=== PATIENT | female | born 1955 | race Caucasian/White ===

== ENCOUNTER 2018-02-08 06:22 | Day surgery (SDC) | payer OTHER ==
[2018-02-02 13:57] VITALS: BMI 24.0
[2018-02-08] MEDS ORDERED: LIDOCAINE HCL 1%, 10 MG/ML (20ML VIAL) ONE (07:29)
[2018-02-08] MEDS ORDERED: BUPIVACAINE HCL/PF 0.5% (5MG/ML) 10 ML VIAL ONE (07:29)
--- NOTE | 2018-02-08 07:47 | HP ---
History & Physical Update - History History: No Change - Physical Physical: No Change - Assessment Assessment: No Change - Plan Plan: No Change
[2018-02-08] MEDS ORDERED: PROPOFOL 20 ML ONE (07:48)
[2018-02-08] MEDS ORDERED: MIDAZOLAM HCL 2 MG/2 ML SINGLE DOSE VIAL ONE ×2 (07:51→07:54)
[2018-02-08] MEDS ORDERED: LIDOCAINE HCL 1%, 10 MG/ML (50 mL VIAL) IJ ONE ×2 (08:03)
[2018-02-08] MEDS ORDERED: BUPIVACAINE HCL/PF (5 MG/ML) 30 ML VIAL IJ ONE ×2 (08:03)
--- NOTE | 2018-02-08 08:37 | OP ---
Operative Note - Note: Operative Date: 02/08/18 Pre-Operative Diagnosis: Left flank Soft tissue mass Operation: Excision of Left flank soft tissue mass Findings: as dictated Implants: none Post-Operative Diagnosis: Same as Pre-op Surgeon: Romero Lewis Tool Lapper Hand: Kathleen Justin Anesthesiologist/ROLLED HAM LACER: Guadalupe Steele MD Anesthesia: Local (10cc .5%marcaine with 1% Lidocaine mix administered at time of incision), MAC Estimated Blood Loss (mls): 5 (ml) Drains & Tubes with Location: none Fluid Volume Replaced (mls): 400 (ml) Operative Report Dictated: Yes
--- NOTE | 2018-02-08 08:38 | SURG ---
Surgery At Risk Specialist Note At Risk Specialist: Kathleen Justin PA-C (Suzy) Date of Service: 02/08/18 Diagnosis: Left flank Soft tissue mass Procedure: Excision of Left flank soft tissue mass I was present for the entirety of the operative procedure. For further detail, please refer to operative report. Visit type - Case Type Case Type: Scheduled - Emergency Emergency Visit: No - New patient This patient is new to me today: Yes Date on this admission: 02/08/18 - Critical Care Critical Care patient: No
[2018-02-08] MEDS ORDERED: oxyCODONE HCL 5 MG TABLET PO PRN (09:24)
[2018-02-08] MEDS ORDERED: ONDANSETRON 4 MG/2 ML VIAL IVPUSH PRN (09:24)
[2018-02-08] MEDS ORDERED: PROMETHAZINE HCL 25 MG/1 ML VIAL IVPUSH PRN (09:24)
[2018-02-08] MEDS ORDERED: LACTATED RINGERS SOLUTION 1,000 ML IV SCH (09:30)
[2018-02-08 10:55] VITALS: BP 112/70
[2018-02-08 12:16] VITALS: PULSE 82; TEMP 97.8
--- NOTE | 2018-02-08 13:17 | OP ---
DATE OF OPERATION: 02/08/2018 PREOPERATIVE DIAGNOSIS: Lipoma of left flank. POSTOPERATIVE DIAGNOSIS: Lipoma of left flank. PROCEDURE: Excision, lipoma of left flank. SURGEON: Romero Lewis MD BIAS MACHINE OPERATOR: Alesha Justin PA-C ANESTHESIA: Local with IV sedation. OPERATIVE FINDINGS: There was an approximately 5-cm subfascial lipoma of the left flank originating from the fascia over the left ribs. The rest of the findings were unremarkable. PROCEDURE: The patient was placed on the operating table in the right lateral decubitus position and the area over the palpable abnormality was prepped with ChloraPrep and draped in sterile fashion. A timeout was taken and the skin incision mapped out and the area infiltrated with 1% Xylocaine and 0.5% Marcaine in equal concentration. An incision was made with the scalpel and taken down through skin and subcutaneous tissue until the lipoma was identified. It was bluntly dissected from the surrounding tissues down to its pedicle over the fascia over the ribs. The pedicle was clamped, the lipoma excised and sent for pathological examination and the pedicle ligated with 2-0 Vicryl suture. Hemostasis was secured with electrocautery and then the wound copiously irrigated with sterile saline and closed in layers with interrupted 3-0 Vicryl for the deep dermis and 4-0 Monocryl in a subcuticular continuous fashion to reapproximate the skin edges followed by surgical adhesive and Steri-Strips and dry sterile dressings. The procedure was terminated at this point and the patient transferred to the postanesthesia care unit in stable condition, awake and alert. ESTIMATED BLOOD LOSS: Minimal. DRAINS: None. SPECIMENS: Lipoma to Pathology. I, Romreo Lewis, was physically present in the operating room from the time the patient was placed on the operating table until she was transferred to the postanesthesia care unit in my accompaniment. MD BRIAN Ruff/[id number] MTDD
--- NOTE | 2018-02-09 15:55 | PATH ---
Surgical Pathology Report Patient Name: FELIX MOTTA [facility]. Rec. #: [id number] /Age/Gender: 1955 (Age: 62) / F Account: [id number] Location: [facility] SURGICAL Taken: 02/08/2018 Received: 02/08/2018 Reported: 02/09/2018 Physicians: Romero Lewis MD Specimen(s) Received LEFT FLANK SOFT TISSUE MASS Clinical History Soft tissue mass left flank Final Diagnosis LEFT FLANK SOFT TISSUE MASS, EXCISION: MATURE ADIPOSE TISSUE, CONSISTENT WITH LIPOMA WITH FOCAL FAT NECROSIS. Electronically Signed Tito Mays M.D. Gross Description Received in formalin labeled "left flank soft tissue mass," is a 5.0 x 3.7 x 1.4 cm aggregate of yellow, lobulated adipose tissue. Sectioning reveals a small focus of possible fat necrosis. The remaining cut surface is homogeneous yellow and smooth. Laboratory Veterinarian sections are submitted in 3 cassettes as follows: 1-focus of fat necrosis; 4-7-lojkklpoxi school admissions representative tissue. /02/08/2018 saudi02/08/2018
== END 2018-02-08 11:30 | disposition home or self-care (01) ==
LOC: JASU-SURG 06:22
PROVIDERS: ATTEND Surgery
PROC: 0JB70ZZ Excision of Back Subcutaneous Tissue and Fascia, Open Approach (ICD-10-PCS; principal; 2018-02-08 07:30)
DX: D17.1 Benign lipomatous neoplasm of skin and subcutaneous tissue of trunk (principal)
CPT/HCPCS: 88304-TC; 94760

== ENCOUNTER 2018-06-28 10:28 | Observation (INO) | payer OTHER ==
[2018-06-28 10:36] VITALS: BMI 31.2
[2018-06-28] MEDS ORDERED: ASPIRIN 325 MG TABLET PO ONE (11:06)
[2018-06-28] MEDS ORDERED: ASPIRIN 325 MG TABLET ONE (11:13)
[2018-06-28 11:28] LABS: BASO % 0.7 % (0-2.0); EOS % 1.2 % (0-4.5); HEMATOCRIT 41.7 % (32.4-45.2); HEMOGLOBIN 13.9 GM/dL (10.7-15.3); LYMPH % 25.4 % (8-40); MCH 31.2 pg (25.7-33.7); MCHC 33.4 g/dl (32.0-36.0); MEAN CELL VOLUME 93.5 fl (80-96); MEAN PLT VOLUME 8.3 fl (7.5-11.1); MONO % 6.1 % (3.8-10.2); NEUT % 66.6 % (42.8-82.8); PLATELET COUNT 262 K/MM3 (134-434); RBC 4.46 M/mm3 (3.60-5.2); RDW 13.6 % (11.6-15.6); WHITE BLOOD COUNT 6.9 K/mm3 (4.0-10.0)
[2018-06-28 11:47] LABS: INR 1.12 (0.83-1.09); PROTHROMBIN TIME (PATIENT) 13.2 SEC (9.7-13.0)
[2018-06-28 11:56] LABS: ALBUMIN 3.7 g/dl (3.4-5.0); ALK PHOS 120 U/L (45-117); ANION GAP 7 MMOL/L (8-16); BILIRUBIN,TOTAL 0.4 mg/dL (0.2-1); BLOOD UREA NITROGEN 15 mg/dL (7-18); CALCIUM 8.8 mg/dL (8.5-10.1); CHLORIDE 108 mmol/L (98-107); CO2 24 mmol/L (21-32); CREATININE 0.6 mg/dL (0.55-1.3); GLUCOSE,RANDOM 134 mg/dL (74-106); SGOT/AST 25 U/L (15-37); SGPT/ALT 34 U/L (13-61); SODIUM 139 mmol/L (136-145); TOT PROT 7.2 g/dl (6.4-8.2)
--- NOTE | 2018-06-28 13:01 | EKG ---
Test Reason : Blood Pressure : / mmHG Vent. Rate : 067 BPM Atrial Rate : 067 BPM P-R Int : 146 ms QRS Dur : 080 ms QT Int : 436 ms P-R-T Axes : 039 002 049 degrees QTc Int : 460 ms NORMAL SINUS RHYTHM NORMAL ECG NO PREVIOUS ECGS AVAILABLE Confirmed by BRIANNA ESCOBEDO, CALEB ([id number]) on 06/28/2018 1:01:08 PM Referred By: Confirmed By:CALEB REED MD
--- NOTE | 2018-06-28 16:26 | HP ---
Admitting History and Physical - Primary Care Physician PCP: Jeff Bermudez - Admission Chief Complaint: Left sided chest pain History of Present Illness: 71 yrs old F known case of diet controlled DM and HTN, Rheumatoid arthritis, today referred by the PMD for evaluation of Left sided chest pain, patient c/o has been experiencing Left sided chest pain for past 5 days, 05/17., intermittent, non radiating like pins needles, localized in Left pectoral and axillary area, no relation to food or exertion denies any palpitation, nausea, vomiting, perspiration c/o occasional dizziness, today patient called PMD office , PMD asked her to visit Ed for evaluation, at the time of examination, middle aged F comfortable c/o Left sided chest wall pain. No c/o cough, fever, SOB< PND or orthopnea, no recent change in ET History Source: Patient - Past Medical History Cardiovascular: Yes: HTN Rheumatology: Yes: Rheumatoid Arthritis Endocrine: Yes: Diabetes Mellitus - Smoking History Smoking history: Never smoked - Alcohol/Substance Use Hx Alcohol Use: No - Social History Usual Living Arrangement: Yes: With Spouse ADL: Independent Home Medications - Allergies Allergies/Adverse Reactions: Allergies Allergy/AdvReac Type Severity Reaction Status Date / Time No Known Allergies Allergy Verified 06/28/18 10:33 - Home Medications Home Medications: Ambulatory Orders Folic Acid 1 mg PO DAILY 02/08/18 Meloxicam 1 tab PO PRN PRN 02/08/18 Methotrexate Sodium [Methotrexate] 2.5 mg PO WEEKLY 02/08/18 Family Disease History - Family Disease History Family History: Unremarkable Review of Systems - Review of Systems Constitutional: denies: Chills, Diaphoresis, Fever Eyes: denies: Blind Spots, Blurred Vision HENT: denies: Difficult Swallowing, Ear Discharge, Ear Pain Neck: denies: Decreased ROM, Lumps, Pain on Movement Cardiovascular: reports: Chest Pain. denies: Edema, Palpitations, Shortness of Breath Respiratory: denies: Cough, Exercise Intolerance Gastrointestinal: denies: Abdominal Pain, Bloating, Constipation, Diarrhea Genitourinary: denies: Burning, Discharge, Dysuria Musculoskeletal: denies: Back Pain, Crepitus, Decreased ROM Neurological: denies: Change in LOC Endocrine: denies: Excessive Sweating, Flushing Hematology/Lymphatic: denies: Easily Bruised, Excessive Bleeding Psychiatric: denies: Altered Sleep Pattern Physical Examination Vital Signs: Vital Signs Temperature 98.2 F 06/28/18 10:33 Pulse Rate 73 06/28/18 10:33 Respiratory Rate 16 06/28/18 10:33 Blood Pressure 174/88 H 06/28/18 10:33 O2 Sat by Pulse Oximetry (%) 99 06/28/18 10:33 Findings/Remarks: Middle aged F comfortable HEENT: Mm moist, no anemia, PERRLA EOMI NECK: No JVD , No Bruit CHEST: Chest wall tenderness Left pectoral area, CTA B/L CVS: S1S2 R ABD: No distention, non tender BS + EXT: No edema feet, no calf tenderness RN BARIATRIC: AOX3 non focal Labs: CBC,CMP WBC 6.9 K/mm3 (4.0-10.0) 06/28/18 11:18 RBC 4.46 M/mm3 (3.60-5.2) 06/28/18 11:18 Hgb 13.9 GM/dL (10.7-15.3) 06/28/18 11:18 Hct 41.7 % (32.4-45.2) 06/28/18 11:18 MCV 93.5 fl (80-96) 06/28/18 11:18 MCH 31.2 pg (25.7-33.7) 06/28/18 11:18 MCHC 33.4 g/dl (32.0-36.0) 06/28/18 11:18 RDW 13.6 % (11.6-15.6) 06/28/18 11:18 Plt Count 262 K/MM3 (134-434) 06/28/18 11:18 MPV 8.3 fl (7.5-11.1) 06/28/18 11:18 Absolute Neuts (auto) 4.6 K/mm3 (1.5-8.0) 06/28/18 11:18 Neutrophils % 66.6 % (42.8-82.8) 06/28/18 11:18 Lymphocytes % 25.4 % (8-40) 06/28/18 11:18 Monocytes % 6.1 % (3.8-10.2) 06/28/18 11:18 Eosinophils % 1.2 % (0-4.5) 06/28/18 11:18 Basophils % 0.7 % (0-2.0) 06/28/18 11:18 Nucleated RBC % 0 % (0-0) 06/28/18 11:18 Sodium 139 mmol/L (136-145) 06/28/18 11:18 Potassium 4.0 mmol/L (3.5-5.1) 06/28/18 11:18 Chloride 108 mmol/L (98-107) H 06/28/18 11:18 Carbon Dioxide 24 mmol/L (21-32) 06/28/18 11:18 Anion Gap 7 MMOL/L (8-16) L 06/28/18 11:18 BUN 15 mg/dL (7-18) 06/28/18 11:18 Creatinine 0.6 mg/dL (0.55-1.3) 06/28/18 11:18 Est GFR (CKD-EPI)AfAm 114.82 06/28/18 11:18 Est GFR (CKD-EPI)NonAf 99.07 06/28/18 11:18 Random Glucose 134 mg/dL (74-106) H 06/28/18 11:18 Calcium 8.8 mg/dL (8.5-10.1) 06/28/18 11:18 Total Bilirubin 0.4 mg/dL (0.2-1) 06/28/18 11:18 AST 25 U/L (15-37) 06/28/18 11:18 ALT 34 U/L (13-61) 06/28/18 11:18 Alkaline Phosphatase 120 U/L (45-117) H 06/28/18 11:18 Creatine Kinase 105 U/L (26-192) 06/28/18 11:18 Troponin I < 0.02 ng/ml (0.00-0.05) 06/28/18 11:18 Total Protein 7.2 g/dl (6.4-8.2) 06/28/18 11:18 Albumin 3.7 g/dl (3.4-5.0) 06/28/18 11:18 Imaging - Results X-ray: Report Reviewed (CTA B/L) EKG: Report Reviewed ([address] t chnages) Problem List - Problems (1) Chest pain Assessment/Plan: Atypical chest pain, h/o borderline DM, and HTN, RA, Ist Trop I, EKG no St T changes -ve will F/U ECHO , serial CE & EKGs, Lipid panel, HbA1C, TSH cont ASA F/U Cardiology recommendations. Code(s): R07.9 - CHEST PAIN, UNSPECIFIED Qualifiers: Chest pain type: unspecified Qualified Code(s): R07.9 - Chest pain, unspecified (2) HTN (hypertension) Assessment/Plan: Diet controlled low salt Diet will observe Code(s): I10 - ESSENTIAL (PRIMARY) HYPERTENSION (3) Rheumatoid arthritis Assessment/Plan: Resume all home meds Code(s): M06.9 - RHEUMATOID ARTHRITIS, UNSPECIFIED
--- NOTE | 2018-06-28 16:29 | PDOC ---
Documentation entered by Linda oJrdan SCRIBE, acting as scribe for Carl Arteaga MD. Carl Arteaga MD: This documentation has been prepared by the Nikki mckinney Adrianna, SCRIBE, under my direction and personally reviewed by me in its entirety. I confirm that the documentation accurately reflects all work, treatment, procedures, and medical decision making performed by me. History of Present Illness - General Chief Complaint: Chest Pain Stated Complaint: SENT BY PCP Time Seen by Provider: 06/28/18 10:50 - History of Present Illness Initial Comments: Patient is a 62 Y F, with a past medical history of HTN, psoriasis, and resolved DM, who presents with left-sided chest pain that radiates to the back, pins and needles in character, lasting for the past 5 days, nonpleuritic, intermittent, slightly exacerbated with deep inspiration, with associated shortness of breath and dizziness. Patient notes her chest pain worsened last night, and episodes last for 1-2 minutes. She reports calling her PCP for this issue, who advised she come to the ED for treatment. Denies diaphoresis, fever, chills, cough, sputum. Allergies: NKA Past surgical history: Appendectomy Social history: Denies tobacco use or EtOH consumption. PCP: Dr. Jeff Bermudez 06/28/18 11:09 Past History - Past Medical History Allergies/Adverse Reactions: Allergies Allergy/AdvReac Type Severity Reaction Status Date / Time No Known Allergies Allergy Verified 06/28/18 10:33 Home Medications: Ambulatory Orders Folic Acid 1 mg PO DAILY 02/08/18 Meloxicam 1 tab PO PRN PRN 02/08/18 Methotrexate Sodium [Methotrexate] 2.5 mg PO WEEKLY 02/08/18 Anemia: No Asthma: No Cancer: No Cardiac Disorders: No CVA: No COPD: No CHF: No Dementia: No Diabetes: No GI Disorders: No Disorders: No HTN: Yes (NO MEDS) Hypercholesterolemia: No Liver Disease: No Seizures: No Thyroid Disease: No - Surgical History Abdominal Surgery: Yes Appendectomy: Yes - Immunization History Immunization Up to Date: Yes - Suicide/Smoking/Psychosocial Hx Smoking History: Never smoked Information on smoking cessation initiated: No Hx Alcohol Use: No Drug/Substance Use Hx: No Substance Use Type: None Hx Substance Use Treatment: No Cardiac Specific PMH - Complaint Specific PMHX Pacemaker: No Review of Systems - Review of Systems Comments:: CONSTITUTIONAL: No fever, no chills, no fatigue EYES: No visual changes ENT: No ear pain, no sore throat CARDIOVASCULAR: +Left-sided chest pain that radiates to the back. No palpitations RESPIRATORY: +SOB. No cough. GI: No abdominal pain, no nausea, no vomiting, no constipation, no diarrhea GENITOURINARY: No dysuria, no frequency, no hematuria MUSKULOSKELETAL: No back pain, no joint pain, no myalgias SKIN: No rash NEURO: +Dizziness. No headache 06/28/18 11:09 *Physical Exam - Vital Signs Last Vital Signs Temp Pulse Resp BP Pulse Ox 98.2 F 73 16 174/88 H 99 06/28/18 10:33 06/28/18 10:33 06/28/18 10:33 06/28/18 10:33 06/28/18 10:33 - Physical Exam Comments: 06/28/18 16:29 EXAMINATION CONSTITUTIONAL: Well-appearing; obese; in no apparent distress HEAD: Normocephalic; atraumatic EYES: PERRL; EOM intact ENMT: External appears normal; normal oropharynx NECK: Supple; non-tender; no cervical lymphadenopathy CARD: Normal S1, S2; no murmurs, rubs, or gallops RESP: Normal chest excursion with respiration; breath sounds clear and equal bilaterally; no wheezes, rhonchi, or rales ABD: Soft, non-distended; non-tender; no palpable organomegaly, no palpable hernias EXT: Normal ROM in all four extremities; non-tender to palpation; distal pulses intact SKIN: Warm, dry, no rash NEURO: No focal neurological deficiencies. ED Treatment Course - LABORATORY CBC & Chemistry Diagram: 06/28/18 11:18 06/28/18 11:18 - ADDITIONAL ORDERS Additional order review: Laboratory Results 06/28/18 06/28/18 11:18 11:18 PT with INR 13.20 H INR 1.12 H Sodium 139 Potassium 4.0 Chloride 108 H Carbon Dioxide 24 Anion Gap 7 L BUN 15 Creatinine 0.6 Est GFR (CKD-EPI)AfAm 114.82 Est GFR (CKD-EPI)NonAf 99.07 Random Glucose 134 H Calcium 8.8 Total Bilirubin 0.4 AST 25 ALT 34 Alkaline Phosphatase 120 H Creatine Kinase 105 Troponin I < 0.02 Total Protein 7.2 Albumin 3.7 06/28/18 11:18 RBC 4.46 MCV 93.5 MCHC 33.4 RDW 13.6 MPV 8.3 Neutrophils % 66.6 Lymphocytes % 25.4 Monocytes % 6.1 Eosinophils % 1.2 Basophils % 0.7 - RADIOLOGY Radiology Studies Ordered: Category Date Time Status CHEST X-RAY PORTABLE* [RAD] Stat Radiology 06/28/18 11:05 Completed Radiograph Interpretation: EXAM#: TYPE/EXAM: RESULT: [id number] RAD/CHEST X-RAY PORTABLE* Chest: Chest pain Impression: No acute chest pathology. Reported By: Prashant Salmeron MD 06/28/18 12:04 06/28/18 13:36 - Medications Given in the ED: ED Medications Discontinued Medications Generic Name Dose Route Start Last Admin Trade Name Freq PRN Reason Stop Dose Admin Aspirin 325 mg 06/28/18 11:06 06/28/18 11:20 Asa - PO 06/28/18 11:07 325 mg ONCE ONE Administration Medical Decision Making - Medical Decision Making 06/28/18 16:30 Patient is an obese 62-year-old female with history of hypertension or return arthritis presents with intermittent left-sided and substernal chest pain. Initial EKG is nonischemic, chest x-ray reveals no evidence of infiltrate or effusion. First set of cardiac enzymes within normal limit. Patient's heart score is 3. Will place him of this for serial cardiac enzymes and further evaluation. *DC/Admit/Observation/Transfer Diagnosis at time of Disposition: Chest pain Qualifiers: Chest pain type: unspecified Qualified Code(s): R07.9 - Chest pain, unspecified - Discharge Dispostion Condition at time of disposition: Fair Decision to Admit order: Yes Decision to Admit order Date/Time: Decision to Admit Order Category Date Time Status Decision to Admit to Hospital Routine Admission 06/28/18 16:29 Ordered - Referrals - Patient Instructions - Post Discharge Activity
--- NOTE | 2018-06-28 17:22 | CON.CARD ---
Consult Consult Specialty:: cardiology Reason for Consultation:: chest pain - History of Present Illness History of Present Illness: 71 yrs old F diet controlled DM and HTN, Rheumatoid arthritis, today referred by the PMD for evaluation of Left sided chest pain. Several days of intermittent pain which is reproduced with raising the arm or pressing on the chest wall. She can pinpoint the location of the pain with palpation or stretching of the arm. c/o occasional dizziness. - History Source Limitations to Obtaining History: No Limitations - Past Medical History Cardio/Vascular: Yes: HTN Rheumatology: Yes: Rheumatoid Arthritis Endocrine: Yes: Diabetes Mellitus - Alcohol/Substance Use Hx Alcohol Use: No - Smoking History Smoking history: Never smoked - Social History ADL: Independent Home Medications - Allergies Allergies/Adverse Reactions: Allergies Allergy/AdvReac Type Severity Reaction Status Date / Time No Known Allergies Allergy Verified 06/28/18 10:33 - Home Medications Home Medications: Ambulatory Orders Folic Acid 1 mg PO DAILY 02/08/18 Meloxicam 1 tab PO PRN PRN 02/08/18 Methotrexate Sodium [Methotrexate] 2.5 mg PO WEEKLY 02/08/18 Review of Systems - Review of Systems Constitutional: reports: No Symptoms Eyes: reports: No Symptoms HENT: reports: No Symptoms Neck: reports: No Symptoms Cardiovascular: reports: Chest Pain Respiratory: reports: No Symptoms Gastrointestinal: reports: No Symptoms Genitourinary: reports: No Symptoms Vital Signs: Vital Signs Temperature 98.2 F 06/28/18 10:33 Pulse Rate 73 06/28/18 10:33 Respiratory Rate 16 06/28/18 10:33 Blood Pressure 174/88 H 06/28/18 10:33 O2 Sat by Pulse Oximetry (%) 99 06/28/18 10:33 Constitutional: Yes: Well Nourished, No Distress Eyes: Yes: Conjunctiva Clear, EOM Intact HENT: Yes: Atraumatic, Normocephalic Neck: Yes: Supple, Trachea Midline Respiratory: Yes: Regular, CTA Bilaterally Gastrointestinal: Yes: Normal Bowel Sounds, Soft Cardiovascular: Yes: Regular Rate and Rhythm (CP and arm pain is reproducible on exam) JVD: No Carotid Bruit: No Heart Sounds: Yes: S1, S2 Edema: No - Other Data Labs, Other Data: CBC, BMP 06/28/18 11:18 06/28/18 11:18 INR, PTT INR 1.12 (0.83-1.09) H 06/28/18 11:18 Troponin, BNP 06/28/18 11:18 Troponin I < 0.02 Troponin, BNP 06/28/18 11:18 Troponin I < 0.02 NSR nl axis and intervals. Imaging - Results EKG: Image Reviewed (NSR no ST T changes.) Problem List - Problems (1) Chest pain Code(s): R07.9 - CHEST PAIN, UNSPECIFIED Qualifiers: Chest pain type: unspecified Qualified Code(s): R07.9 - Chest pain, unspecified Assessment/Plan 62F RA, DM, HTN Atypical and completely reproducible CP with palpation or strtching her arm and consistent with muskuloskeletal pain. ECG is normal. Control BP Will see as needed.
[2018-06-28 18:33] LABS: CHOLESTEROL 179 mg/dL (50-200); HDL CHOLESTEROL 49 mg/dL (40-60); TRIGLYCERIDES 119 mg/dL (0-150)
[2018-06-28] MEDS ORDERED: IBUPROFEN 400 MG TABLET (FP) PO PRN (19:14)
[2018-06-29 01:28] VITALS: TEMP 98.1
[2018-06-29 07:15] LABS: BASO % 0.8 % (0-2.0); EOS % 3.4 % (0-4.5); HEMATOCRIT 40.1 % (32.4-45.2); HEMOGLOBIN 13.8 GM/dL (10.7-15.3); LYMPH % 21.3 % (8-40); MCH 31.9 pg (25.7-33.7); MCHC 34.4 g/dl (32.0-36.0); MEAN CELL VOLUME 92.7 fl (80-96); MEAN PLT VOLUME 8.3 fl (7.5-11.1); MONO % 8.2 % (3.8-10.2); NEUT % 66.3 % (42.8-82.8); PLATELET COUNT 251 K/MM3 (134-434); RBC 4.32 M/mm3 (3.60-5.2); RDW 13.6 % (11.6-15.6)
[2018-06-29 07:41] LABS: ALBUMIN 3.6 g/dl (3.4-5.0); ALK PHOS 120 U/L (45-117); ANION GAP 6 MMOL/L (8-16); BILIRUBIN,TOTAL 0.7 mg/dL (0.2-1); BLOOD UREA NITROGEN 11 mg/dL (7-18); CALCIUM 8.3 mg/dL (8.5-10.1); CHLORIDE 105 mmol/L (98-107); CO2 28 mmol/L (21-32); CREATININE 0.7 mg/dL (0.55-1.3); GLUCOSE,RANDOM 146 mg/dL (74-106); SGOT/AST 24 U/L (15-37); SGPT/ALT 34 U/L (13-61); SODIUM 139 mmol/L (136-145); TOT PROT 6.9 g/dl (6.4-8.2)
[2018-06-29 07:57] VITALS: BP 139/77; PULSE 70
[2018-06-29] MEDS ORDERED: FOLIC ACID 1 MG TABLET (FP) PO SCH (10:00)
[2018-06-29] MEDS ORDERED: amLODIPine BESYLATE 2.5 MG TABLET (FP) PO SCH (10:15)
--- NOTE | 2018-06-29 13:14 | EKG ---
Test Reason : Blood Pressure : / mmHG Vent. Rate : 054 BPM Atrial Rate : 054 BPM P-R Int : 160 ms QRS Dur : 080 ms QT Int : 476 ms P-R-T Axes : 039 016 034 degrees QTc Int : 451 ms SINUS BRADYCARDIA NONSPECIFIC ST ABNORMALITY ABNORMAL ECG WHEN COMPARED WITH ECG OF 28-JUN-2018 10:28, NO SIGNIFICANT CHANGE WAS FOUND Confirmed by MRATINEZ SPARROW MD ([id number]) on 06/29/2018 1:14:36 PM Referred By: Confirmed By:MARTINEZ SPARROW MD
--- NOTE | 2018-06-29 13:31 | ECHO ---
Name: XAVI FELIX SANTAMARIA Exam:Adult Echocardiogram Study Date: 06/29/2018 08:17 AM Age: 62 yrs Reason For Study: SYNCOPE Height: 60 in Weight: 160 lb BSA: 1.7 m2 MMode/2D Measurements & Calculations IVSd: 0.93 cm Ao root diam: 3.7 cm LVIDd: 4.0 cm LA dimension: 3.3 cm LVIDs: 2.6 cm ACS: 2.0 cm LVPWd: 0.89 cm IVSs: 1.4 cm LVPWs: 1.3 cm EDV(Teich): 72.0 ml ESV(Teich): 24.3 ml Doppler Measurements & Calculations MV E max jf: 70.8 cm/sec Ao V2 max: 130.3 cm/sec MV A max jf: 77.0 cm/sec Ao max P.8 mmHg MV E/A: 0.92 Med Peak E' Fj: 5.2 cm/sec Med E/e': 13.7 Lat Peak E' Jf: 8.4 cm/sec Lat E/e': 8.4 Procedure A complete two-dimensional transthoracic echocardiogram was performed (2D, M-mode, Doppler and color flow Doppler). Left Ventricle The left ventricular size, thickness and function are normal. The left ventricular ejection fraction is normal. Ejection Fraction = 60-65%. The left ventricular wall motion is normal. Right Ventricle The right ventricle is normal in size and function. Atria Normal left and right atrial size and function. Mitral Valve There is no mitral regurgitation noted. Tricuspid Valve There is trace tricuspid regurgitation. There was insufficient TR detected to calculate RV systolic p ressure. Aortic Valve No hemodynamically significant valvular aortic stenosis. No aortic regurgitation is present. Pulmonic Valve There is no pulmonic valvular regurgitation. Great Vessels The aortic root is normal size. Pericardium/Pleura There is no pericardial effusion. Interpretation Summary The left ventricular size, thickness and function are normal The right ventricle is normal in size and function. There is trace tricuspid regurgitation. MD Travis Padilla 06/29/2018 01:31 PM
--- NOTE | 2018-06-29 14:25 | DS ---
Physical Examination Vital Signs: Vital Signs Temperature 98.1 F 06/29/18 07:54 Pulse Rate 70 06/29/18 07:54 Respiratory Rate 18 06/29/18 07:57 Blood Pressure 139/77 06/29/18 07:54 O2 Sat by Pulse Oximetry (%) 100 06/29/18 07:57 Constitutional: Yes: Well Nourished, No Distress, Calm Eyes: Yes: WNL, Conjunctiva Clear HENT: Yes: WNL, Atraumatic, Normocephalic Neck: Yes: WNL, Supple, Trachea Midline Cardiovascular: Yes: WNL, Regular Rate and Rhythm Respiratory: Yes: WNL, Regular, CTA Bilaterally Gastrointestinal: Yes: WNL, Normal Bowel Sounds, Soft ...Rectal Exam: Yes: WNL, Deferred Renal/: Yes: WNL Breast(s): Yes: WNL Musculoskeletal: Yes: WNL Extremities: Yes: WNL Edema: No Peripheral Pulses WNL: No Integumentary: Yes: WNL Neurological: Yes: WNL, Alert, Oriented ...Motor Strength: WNL Psychiatric: Yes: WNL, Alert, Oriented (speaks primarily Paraguayan) Labs: CBC, BMP 06/29/18 05:30 06/29/18 05:30 Discharge Summary Reason For Visit: CHEST PAIN Current Active Problems HTN (hypertension) (Acute) Rheumatoid arthritis (Acute) Chest pain resolved. Most likely muscoloskeletal in nature from RA. Reproducible. Seen by cardiology. TTE done with nml EF. Prescription for amlopopine 2.5mg to better control BP Condition: Improved - Instructions Diet, Activity, Other Instructions: resume low sodium/low cholesterol Disposition: HOME - Home Medications Comprehensive Discharge Medication List: Ambulatory Orders Folic Acid 1 mg PO DAILY 02/08/18 Meloxicam 1 tab PO PRN PRN 02/08/18 Methotrexate Sodium [Methotrexate] 2.5 mg PO WEEKLY 02/08/18 Amlodipine Besylate [Norvasc -] 0.5 tab PO DAILY #30 tablet 06/29/18 This patient is new to me today: Yes Date on this admission: 06/29/18 Emergency Visit: Yes ED Registration Date: 06/28/18 Care time: The patient presented to the Emergency Department on the above date and was hospitalized for further evaluation of their emergent condition. Critical Care patient: No - Discharge Referral Referred to [facility] Med P.C.: No
[2018-07-01] MEDS ORDERED: METHOTREXATE 2.5 MG TABLET PO SCH (10:00)
== END 2018-06-29 15:11 | disposition home or self-care (01) ==
LOC: JER 10:28 → JERBED 16:29 → J4W 18:12
PROVIDERS: ADMIT Internal Medicine; ATTEND Nurse Practitioner Acute Care
DX: R07.9 Chest pain, unspecified (principal); I10 Essential (primary) hypertension; M06.9 Rheumatoid arthritis, unspecified
CPT/HCPCS: 36415; 71045-TC-FY; 80053; 80061; 82550; 82962; 83036; 83721; 84443; 84484; 85025; 85610; 93005; 93010; 93306-TC; 99285-25; G0378

== ENCOUNTER 2018-08-15 10:18 | Day surgery (SDC) | payer OTHER ==
[2018-08-14 14:59] VITALS: BMI 38.0
[2018-08-15 12:57] VITALS: TEMP 98.8
[2018-08-15 13:57] VITALS: BP 105/55; PULSE 50
--- NOTE | 2018-08-17 16:51 | PATH ---
Surgical Pathology Report Patient Name: FELIX MCCRACKEN [facility]. Rec. #: [id number] /Age/Gender: 1955 (Age: 62) / F Account: [id number] Location: [facility]-ENDOSCOPY Taken: 08/15/2018 Received: 08/15/2018 Reported: 08/17/2018 Physicians: Luis Antonio Vergara D.O. Specimen(s) Received POLYP SIGMOID Clinical History Screening Postoperative diagnosis: Diverticulosis, colon polyp, hemorrhoids Final Diagnosis SIGMOID AT 25 CM, POLYP, BIOPSY: HYPERPLASTIC POLYP. Electronically Signed Maxine Farr M.D. Gross Description Received in formalin, labeled "polyp sigmoid at 25 cm" is a candelario, irregular portion of soft tissue measuring 0.4 cm. in greatest dimension. The specimen is submitted in toto in one cassette. /08/16/201808/16/2018
== END 2018-08-15 13:57 | disposition home or self-care (01) ==
LOC: JASU-ENDO 10:18
PROVIDERS: ATTEND Internal Medicine Gastroenterology
PROC: 0DBN8ZX Excision of Sigmoid Colon, Via Natural or Artificial Opening Endoscopic, Diagnostic (ICD-10-PCS; principal; 2018-08-15 11:30)
DX: Z12.11 Encounter for screening for malignant neoplasm of colon (principal); K57.30 Diverticulosis of large intestine without perforation or abscess without bleeding; K64.8 Other hemorrhoids; D12.5 Benign neoplasm of sigmoid colon; I10 Essential (primary) hypertension; E66.9 Obesity, unspecified; E11.9 Type 2 diabetes mellitus without complications; M06.9 Rheumatoid arthritis, unspecified
CPT/HCPCS: 88305-TC

== ENCOUNTER 2019-12-12 04:35 | Day surgery (SDC) | payer OTHER ==
--- OUTSIDE RECORDS SUMMARY | 2019-12-04 07:48 | XMS ---
:1955 Author Organization [facility] Care Team Providers Name Role Phone Chumaceiro, Jeff Unavailable Unavailable Chumaceiro, Jeff Unavailable Unavailable Chumaceiro, Jeff Unavailable Unavailable Chumaceiro, Jeff Unavailable Unavailable Chumaceiro, Jeff Unavailable Unavailable Chumaceiro, Jfef Unavailable Unavailable Chumaceiro, Jeff Unavailable Unavailable Chumaceiro, Jeff Unavailable Unavailable FAVIO HEREDIA Unavailable Unavailable Re-disclosure Warning The records that you are about to access may contain information from federally- assisted alcohol or drug abuse programs. If such information is present, then the following federally mandated warning applies: This information has been disclosed to you from records protected by federal confidentiality rules (42 CFR part 2). The federal rules prohibit you from making any further disclosure of this information unless further disclosure is expressly permitted by the written consent of the person to whom it pertains or as otherwise permitted by 42 CFR part 2. A general authorization for the release of medical or other information is NOT sufficient for this purpose. The Federal rules restrict any use of the information to criminally investigate or prosecute any alcohol or drug abuse patient.The records that you are about to access may contain highly sensitive health information, the redisclosure of which is protected by Article 27-F of the [facility] Public Health law. If you continue you may haveaccess to information: Regarding HIV / AIDS; Provided by facilities licensed or operated by the [facility] Office of Mental Health; or Provided by the [facility] Office for People With Developmental Disabilities. If such information is present, then the following [facility] mandated warning applies: This information has been disclosed to you from confidential records which are protected by state law. State law prohibits you from making any further disclosure of this information without the specific written consent of the person to whom it pertains, or as otherwise permitted by law. Any unauthorized further disclosure in violation of state law may result in a fine or [place] health [facility] sentence or both. A general authorization for the release of medical or other information is NOT sufficient authorization for further disclosure. Encounters Encounter Providers Location Date Indications Data Source(s ) Attender: Jeff 09/18/2019 [facility] EDT Office Attender: Jeff 09/18/2019 12:00:00 AM EDT [facility] ([facility], ) Office Outpatient Attender: FAVIO BASURTO 03/23/2019 02:42:00 PM [facility]ANGdmitter: [facility] SB Pedrazaferrer: FAVIO STEARNSANNE Insurance Providers Payer name Policy type Policy ID Covered Covered green party's Policy P dio / Coverage green party ID relationship to [place] Inf ormation type anderson [facility] [id number] 1 [id number] PLANS O MVP ESSENTIAL O [id number] PLAN MVP ESSENTIAL [id number] SP [id number] PLAN 1 2 [place] [id number] [place] [id number] HMO Problems, Conditions, and Diagnoses Code Display Name Description Problem Type Effective Data Sour ce(s) Dates M79.672 Pain in left foot PAIN IN LEFT FOOT Problem 02/05/2019 [facility] ([facility] 12:00:[address] [facility] ) M79.671 Pain in right foot PAIN IN RIGHT FOOT Problem 9 [facility] ([facility] 12:00:[address] [facility] ) M72.2 Plantar fascial PLANTAR FASCIAL Problem 02/05/2019 [facility] ([facility] fibromatosis FIBROMATOSIS 12:00:[address] [facility] ) E11.40 Type 2 diabetes TYPE 2 DIABETES Problem 02/05/2019 [facility] EN ([facility] mellitus with MELLITUS WITH 12:00:00 AM [facility] diabetic DIABETIC [facility] Medical, ) neuropathy, NEUROPATHY, unspecified UNSPECIFIED K14.8 Other diseases of OTHER DISEASES OF Problem 12/25/2018 [facility] ([facility] tongue TONGUE 12:00:00 AM [facility] Medical, ) Z12.31 Encounter for ENCNTR SCREEN Diagnosis 03/23/2019 [facility] screening MAMMOGRAM FOR 02:42:00 PM Medical Ce nter mammogram for MALIGNANT NEOPLASM EST malignant neoplasm OF BREAST of breast Surgeries/Procedures Procedure Description Date Indications Data Source(s) Documentation of current 09/18/2019 [facility] ([facility] (procedure) 12:00:00 AM EDJaycob fernandez, ) OFFICE OUTPATIENT VISIT 09/18/2019 [facility] ([facility] 15 MINUTES 12:00:00 AM [facility] Medical, ) Documentation of current 04/10/2019 [facility] ([facility] medications (procedure) 12:00:00 AM [facility]ern[facility], ) Documentation of current 04/10/2019 [facility] ([facility] medications (procedure) 12:00:00 AM [facility] fernandez, ) OFFICE OUTPATIENT VISIT 04/10/2019 [facility] ([facility] 15 MINUTES 12:00:00 AM [facility], ) COLLECTION VENOUS BLOOD 04/10/2019 [facility] ([facility] VENIPUNCTURE 12:00:00 AM [facility] Medical, PC) Documentation of current 03/12/2019 [facility] ([facility] medications (procedure) 12:00:00 AM [facility] fernandez, PC) Documentation of current 03/12/2019 [facility] ([facility] medications (procedure) 12:00:00 AM [facility], PC) Documentation of current 03/12/2019 [facility] ([facility] medications (procedure) 12:00:00 AM EST Gerardo fernandez, PC) Documentation of current 03/12/2019 [facility] ([facility] medications (procedure) 12:00:00 AM [facility], PC) OFFICE OUTPATIENT VISIT 03/12/2019 [facility] ([facility] 15 MINUTES 12:00:00 AM [facility] Medical, PC) OFFICE OUTPATIENT VISIT 02/05/2019 [facility] ([facility] 10 MINUTES 12:00:00 AM EST Medical, PC) OFFICE OUTPATIENT NEW 20 01/29/2019 [facility] ([facility] MINUTES 12:00:00 AM [facility], PC) Documentation of current 01/22/2019 [facility] ([facility] medications (procedure) 12:00:00 AM [facility] fernandez, PC) Documentation of current 01/22/2019 [facility] ([facility] medications (procedure) 12:00:00 AM [facility] fernandez, PC) Documentation of current 01/22/2019 [facility] ([facility] medications (procedure) 12:00:00 AM [facility] fernandez, PC) Documentation of current 01/22/2019 [facility] ([facility] medications (procedure) 12:00:00 AM [facility] fernandez, PC) Documentation of current 01/22/2019 [facility] ([facility] (procedure) 12:00:00 AM [facility] fern[facility], PC) Documentation of current 01/22/2019 [facility] ([facility] medications (procedure) 12:00:00 AM [facility]ern[facility], PC) OFFICE OUTPATIENT VISIT 01/22/2019 [facility] ([facility] 15 MINUTES 12:00:00 AM [facility], PC) COLLECTION VENOUS BLOOD 01/22/2019 [facility] ([facility] VENIPUNCTURE 12:00:00 AM [facility], PC) Documentation of current 12/25/2018 [facility] ([facility] medications (procedure) 12:00:00 AM [facility] fernandez, PC) Documentation of current 12/25/2018 [facility] ([facility] (procedure) 12:00:00 AM [facility] PC) OFFICE OUTPATIENT VISIT 12/25/2018 [facility] ([facility] 15 MINUTES 12:00:00 AM [facility], PC) Documentation of current 12/11/2018 [facility] ([facility] (procedure) 12:00:00 AM [facility]ernandez, PC) Documentation of current 12/11/2018 [facility] ([facility] medications (procedure) 12:00:00 AM [facility]ern[facility], PC) Documentation of current 12/11/2018 [facility] ([facility] medications (procedure) 12:00:00 AM [facility] fernandez, PC) Documentation of current 12/11/2018 [facility] ([facility] medications (procedure) 12:00:00 AM [facility] fernandez, ) Documentation of current 12/11/2018 [facility] ([facility] medications (procedure) 12:00:00 AM EST [facility], ) Documentation of current 12/11/2018 [facility] ([facility] medications (procedure) 12:00:00 AM EST [facility], ) Documentation of current 12/11/2018 [facility] ([facility] medications (procedure) 12:00:00 AM [facility], ) Documentation of current 12/11/2018 [facility] ([facility] medications (procedure) 12:00:00 AM [facility], ) OFFICE OUTPATIENT VISIT 12/11/2018 [facility] ([facility] 15 MINUTES 12:00:00 AM [facility], ) INFLUENZA VACCINE 12/11/2018 [facility] ([facility] 12:00:00 AM [facility], ) IMADM PRQ ID SUBQ/IM NJXS 12/11/2018 ME D[facility] ([facility] 1 VACCINE 12:00:00 AM [facility], ) Results ID Date Data Source [id number] 04/10/2019 12:00:00 AM EST [facility], ) Name Value Range Interpretation Code Description Data Bonny rce(s) Supporting Document(s ) ID Date Data Source [id number] 04/10/2019 12:00:00 AM EST [facility] ([facility], ) Name Value Range Interpretation Code Description Data Bonny rce(s) Supporting Document(s ) PDF Image . Normal (applies to [facility] (St non-numeric results) [facility], ) ID Date Data Source [id number] 04/10/2019 12:00:00 AM EST [facility] ([facility], ) Name Value Range Interpretation Description Data Sup porting Code Source(s) Document(s ) Hemoglobin 6.5 % Above high normal [facility] (St A1c/Hemoglobin. [facility] total in Blood [facility], ) ID Date Data Source [id number] 04/10/2019 12:00:00 AM EST [facility], ) Name Value Range Interpretation Description Data Sup porting Code Source(s) Document(s ) Bilirubin.c 0.10 mg/dL Normal (applies to [facility] ( St onjugated non-numeric [facility] [Mass/volum results) [facility], ) e] in Serum or Plasma ID Date Data Source [id number] 04/10/2019 12:00:00 AM EST [facility] ([facility]) Name Value Range Interpretation Description Data Sup porting Code Source(s) Document(s ) Triglyceride 213 Above high normal [facility] (S t [Mass/volume] in mg/dL [facility] Serum or Plasma [facility], ) Cholesterol 171 Normal (applies [facility] (St [Mass/volume] in mg/dL to non-numeric [facility] Serum or Plasma results) [facility], ) HDL Cholesterol 39 mg/dL Below low normal [facility] ([facility]) LDL Cholesterol 89 mg/dL Normal (applies MED[facility] ( St Calc to non-numeric [facility] results) [facility], ) VLDL Cholesterol 43 mg/dL Above high normal [facility] N ([facility]) ID Date Data Source [id number] 04/10/2019 12:00:00 AM EST [facility] ([facility]) Name Value Range Interpretation Description Data Sup porting Code Source(s) Document(s ) Glucose 121 Above high [facility] (St [Mass/volume] in mg/dL normal [facility] Urine collected for Medical, unspecified PC) duration Urea nitrogen 20 mg/dL Normal (applies [facility] (St [Mass/volume] in to non-numeric [facility] Serum or Plasma results) [facility], ) Creatinine 1.22 Above high [facility] (St [Interpretation] in mg/dL normal [facility] Urine [facility], ) eGFR If Africn Am 55 Below low normal MEDGE N (St mL/min/1 [facility] .73 [facility], ) eGFR If NonAfricn 48 Below low normal MEDGE N (St Am mL/min/1 [facility] .73 [facility], ) BUN/Creatinine 16 Normal (applies [facility] (S t Ratio to non-numeric [facility] results) [facility], ) Sodium 140 Normal (applies [facility] (St [Moles/volume] in mmol/L to non-numeric [facility] Serum or Plasma results) [facility], ) Potassium 4.3 Normal (applies [facility] (St [Mass/volume] in mmol/L to non-numeric [facility] Blood results) [facility], ) Chloride 103 Normal (applies [facility] (St [Moles/volume] in mmol/L to non-numeric [facility] Serum or Plasma results) Medical, PC) Calcium 9.2 Normal (applies [facility] (St [Moles/volume] in mg/dL to non-numeric [facility] Urine collected for results) Medical, unspecified PC) duration Carbon dioxide, 23 Normal (applies [facility] ( St total mmol/L to non-numeric [facility] [Moles/volume] in results) Medical, Serum or Plasma PC) Protein 6.9 g/dL Normal (applies [facility] (St [Mass/volume] in to non-numeric [facility] Serum or Plasma results) Medical, PC) Microalbumin 4.1 g/dL Normal (applies [facility] (St [Mass/time] in to non-numeric [facility] Urine collected for results) Medical, unspecified PC) duration Globulin, Total 2.8 g/dL Normal (applies [facility] ( St to non-numeric [facility] results) Medical, PC) Bilirubin.total 0.2 Normal (applies [facility] ( St [Mass/volume] in mg/dL to non-numeric [facility] Serum or Plasma results) Medical, PC) A/G Ratio 1.5 Normal (applies [facility] (St to non-numeric [facility] results) Medical, PC) Aspartate 27 IU/L Normal (applies [facility] (St aminotransferase to non-numeric [facility] [Enzymatic results) Medical, activity/volume] in PC) Serum or Plasma Alkaline 88 IU/L Normal (applies [facility] (St phosphatase to non-numeric [facility] [Enzymatic results) Medical, activity/volume] in PC) Serum, Plasma or Blood Alanine 28 IU/L Normal (applies [facility] (St aminotransferase to non-numeric [facility] [Enzymatic results) Medical, activity/volume] in PC) Serum or Plasma ID Date Data Source [id number] 01/22/2019 12:00:00 AM EST [facility] ([facility]) Name Value Range Interpretation Code Description Data Bonny rce(s) Supporting Document(s ) ID Date Data Source [id number] 01/22/2019 12:00:00 AM EST [facility] ([facility]) Name Value Range Interpretation Description Data Sup porting Code Source(s) Document(s ) Hemoglobin 7.8 % Above high normal [facility] (St A1c/Hemoglobin. [facility] total in Blood Medical, ) ID Date Data Source [id number] 01/22/2019 12:00:00 AM EST [facility] ([facility], ) Name Value Range Interpretation Code Description Data Bonny rce(s) Supporting Document(s ) PDF Image . Normal (applies to [facility] (St non-numeric results) [facility] dical, ) Procedure Social History Code Duration Value Status Description Data Source(s ) Smoking 09/18/2019 No alcohol No completed No alcohol No [facility] ([facility] 12:00:00 AM EDT smoking No use smoking No use of Medical, ) of illicit illicit drugs. drugs. [facility] [place] Smoking 09/18/2019 Unknown if ever completed Unknown if ever [facility] EN ([facility] 12:00:00 AM EDT smoked smoked Medical, ) Vital Signs ID Date Data Source UNK Name Value Range Interpretation Code Description Data Source(s) Body mass index 38.5 kg/m2 38.5 kg/m2 [facility] (S t [facility] (BMI) [Ratio] Medical, ) Diastolic blood 76 mm[Hg] 76 mm[Hg] [facility] (S t [facility] pressure Medical, ) Systolic blood 130 mm[Hg] 130 mm[Hg] [facility] ([facility] pressure [facility], ) Body weight 184 lb 184 lb [facility], ) Body height 58 in 58 in [facility] ([facility], ) Body mass index 39.1 kg/m2 39.1 kg/m2 [facility] (S t [facility] (BMI) [Ratio] Medical, ) Diastolic blood 72 mm[Hg] 72 mm[Hg] [facility] (S t [facility] pressure Medical, ) Systolic blood 130 mm[Hg] 130 mm[Hg] [facility] ([facility] pressure [facility], ) Body weight 187 lb 187 lb [facility] ([facility], ) Body height 58 in 58 in [facility] ([facility], ) Body mass index 39.1 kg/m2 39.1 kg/m2 [facility] (S t [facility] (BMI) [Ratio] Medical, ) Diastolic blood 96 mm[Hg] 96 mm[Hg] [facility] (S t [facility] pressure Medical, ) Systolic blood 130 mm[Hg] 130 mm[Hg] [facility] ([facility] pressure [facility], ) Body weight 187 lb 187 lb [facility] ([facility], ) Body height 58 in 58 in [facility], ) Body mass index 39.3 kg/m2 39.3 kg/m2 [facility] (S t [facility] (BMI) [Ratio] Medical, ) Diastolic blood 74 mm[Hg] 74 mm[Hg] [facility] (S t [facility] pressure Medical, ) Systolic blood 130 mm[Hg] 130 mm[Hg] [facility] ([facility] pressure [facility], ) Body weight 188 lb 188 lb [facility], ) Body height 58 in 58 in [facility] ([facility], ) Body mass index 39.5 kg/m2 39.5 kg/m2 [facility] (S t [facility] (BMI) [Ratio] Medical, ) Diastolic blood 70 mm[Hg] 70 mm[Hg] [facility] (S t [facility] pressure Medical, ) Systolic blood 130 mm[Hg] 130 mm[Hg] [facility] ([facility] pressure [facility], ) Body weight 189 lb 189 lb [facility] ([facility], ) Body height 58 in 58 in [facility], ) Body mass index 39.5 kg/m2 39.5 kg/m2 [facility] (S t [facility] (BMI) [Ratio] Medical, ) Diastolic blood 90 mm[Hg] 90 mm[Hg] [facility] (S t [facility] pressure Medical, ) Systolic blood 150 mm[Hg] 150 mm[Hg] [facility] ([facility] pressure [facility], ) Body weight 189 lb 189 lb [facility], ) Body height 58 in 58 in [facility], )
[2019-12-11 16:51] VITALS: BMI 34.0
[~2019-12-12 04:35] MED LIST: TRIAMCINOLONE ACET 40MG/1ML VIAL IM ONE
--- OUTSIDE RECORDS SUMMARY | 2019-12-12 04:39 | XMS ---
[...] is protected by Article 27-F of the [place] Public Health law. If you continue you may haveaccess to information: Regarding HIV / AIDS; Provided by facilities licensed or operated by the [facility] Office of Mental Health; or Provided by the [facility] Office for People With Developmental Disabilities. If such information is present, then the following [facility] mandated warning applies: This information has [...] law may result in a fine or detention sentence or both. A general authorization for the release of medical or other information is NOT sufficient authorization for further disclosure. Encounters Encounter Providers Location Date Indications Data Source(s ) Attender: Jeff 12/05/2019 [facility] ([facility] 12:00:00 AM [facility], ) EDT Office Attender: Jeff 12/05/2019 12:00:00 AM EDT [facility] ([facility], ) Office Attender: Jeff 12/05/2019 12:00:00 AM EDT [facility] ([facility] Office Attender: Jeff 09/18/2019 12:00:00 AM EDT [facility] ([facility], ) Office Attender: Jeff 09/18/2019 12:00:00 AM EDT [facility] ([facility]) Office Outpatient Attender: FAVIO Rios 03/23/2019 02:42:00 PM [facility] PEARLdmitter: [facility] Pedrazaferrer: FAVIO STEARNSANNE Insurance Providers Payer name Policy type Policy ID Covered Covered republican's Policy P ido / Coverage republican ID relationship to [place] Inf ormation type anderson MVP ESSENTIAL [id number] SP [id number] PLAN 1 2 MVP HEALTH [id number] 1 [id number] PLANS O MVP ESSENTIAL O [id number] 01 [id number] PLAN [place] [id number] [place] [id number] HMO Problems, Conditions, and Diagnoses Code Display Name Description Problem Type Effective Data Sour ce(s) Dates [id number] Pain in left foot PAIN IN LEFT FOOT Problem 02/05/2019 MED[facility] (St 12:00:00 AM [facility], ) M79.671 Pain in right foot PAIN IN RIGHT FOOT Problem 9 MED[facility] ([facility] 12:00:00 AM [facility], ) M72.2 Plantar fascial PLANTAR FASCIAL Problem 02/05/2019 MEDG EN (St fibromatosis FIBROMATOSIS 12:00:00 AM [facility], ) E11.40 Type 2 diabetes TYPE 2 DIABETES Problem 02/05/2019 MEDG EN (St mellitus with MELLITUS WITH 12:00:00 AM [facility] DIABETIC [facility], ) neuropathy, NEUROPATHY, unspecified UNSPECIFIED M79.672 Pain in left foot PAIN IN LEFT FOOT Problem 02/05/2019 MED[facility] (St 12:00:00 AM [facility], ) M79.671 Pain in right foot PAIN IN RIGHT FOOT Problem 9 MED[facility] (St 12:00:00 AM [facility], ) M72.2 Plantar fascial PLANTAR FASCIAL Problem 02/05/2019 MEDG EN (St fibromatosis FIBROMATOSIS 12:00:00 AM [facility], ) E11.40 Type 2 diabetes TYPE 2 DIABETES Problem 02/05/2019 MEDG EN (St mellitus with MELLITUS WITH 12:00:00 AM [facility] DIABETIC [facility], ) neuropathy, NEUROPATHY, unspecified UNSPECIFIED K14.8 Other diseases of OTHER DISEASES OF Problem 12/25/2018 MED[facility] (St tongue TONGUE 12:00:00 AM [facility], ) K14.8 Other diseases of OTHER DISEASES OF Problem 12/25/2018 MED[facility] (St tongue TONGUE 12:00:00 AM [facility], ) Z12.31 Encounter for ENCNTR SCREEN Diagnosis 03/23/2019 [facility] screening MAMMOGRAM FOR 02:42:00 PM Medical Ce nter mammogram for MALIGNANT NEOPLASM EST malignant neoplasm OF BREAST of breast Surgeries/Procedures Procedure Description Date Indications Data Source(s) Documentation of current 12/05/2019 MED [facility] ([facility] (procedure) 12:00:00 AM EDELIESER Hernandes) OFFICE OUTPATIENT VISIT 12/05/2019 [facility] ([facility] 25 MINUTES 12:00:00 AM LETY Seo ) ECG ROUTINE ECG W/LEAST 12/05/2019 [facility] 12 [facility] COLLECTION VENOUS BLOOD 12/05/2019 [facility] ([facility] VENIPUNCTURE 12:00:00 AM [facility], ) Documentation of current 09/18/2019 [facility]PATIENT VISIT 09/18/2019 MED[facility] EN ([facility] 15 MINUTES 12:00:00 AM [facility], ) Documentation of current 09/18/2019 [facility]procedure[facility] OFFICE OUTPATIENT VISIT 09/18/2019 [facility] EN ([facility] 15 MINUTES 12:00:00 AM [facility], ) Documentation of current 04/10/2019 MED [facility] ([facility] medications (procedure) 12:00:[address] [facility], ) Documentation of current 04/10/2019 MED [facility] ([facility] medications (procedure) 12:00:00 AM [facility], ) OFFICE OUTPATIENT VISIT 04/10/2019 [facility] EN ([facility] 15 MINUTES 12:00:00 AM [facility], ) COLLECTION VENOUS BLOOD 04/10/2019 MED[facility] EN ([facility] VENIPUNCTURE 12:00:00 AM [facility], ) Documentation of current 04/10/2019 MED [facility] ([facility] medications (procedure) 12:00:[address] [facility], ) Documentation of current 04/10/2019 MED [facility] ([facility] medications (procedure) 12:00:[address] [facility], ) OFFICE OUTPATIENT VISIT 04/10/2019 [facility] EN ([facility] 15 MINUTES 12:00:00 AM [facility], ) COLLECTION VENOUS BLOOD 04/10/2019 [facility] ([facility] VENIPUNCTURE 12:00:00 AM [facility], ) Documentation of current 03/12/2019 MED [facility] ([facility] medications (procedure) 12:00:[address] [facility], ) Documentation of current 03/12/2019 MED [facility] ([facility] (procedure) 12:00:00 AM EST [facility]) Documentation of current 03/12/2019 MED [facility] ([facility] (procedure) 12:00:00 AM EST [facility]) Documentation of current 03/12/2019 MED [facility] ([facility] medications (procedure) 12:00:00 AM EST [facility]) OFFICE OUTPATIENT VISIT 03/12/2019 [facility] EN ([facility] 15 MINUTES 12:00:00 AM EST Medical, PC) Documentation of current 03/12/2019 MED [...] MEDG EN ([facility] 15 MINUTES 12:00:00 AM EST Medical, PC) OFFICE OUTPATIENT VISIT 02/05/2019 [facility] EN ([facility] 10 MINUTES 12:00:00 AM EST Medical, PC) OFFICE OUTPATIENT VISIT 02/05/2019 MED[facility] EN ([facility] 10 MINUTES 12:00:00 AM EST Medical, PC) OFFICE OUTPATIENT NEW 20 01/29/2019 MED [facility] ([facility] MINUTES 12:00:00 AM EST Medical, PC) OFFICE OUTPATIENT NEW 20 01/29/2019 MED [facility] ([facility] MINUTES 12:00:00 AM EST Medical, PC) Documentation of current 01/22/2019 MED [facility] ([facility] medications (procedure) 12:00:00 AM EST [facility]) Documentation of current 01/22/2019 MED [facility] ([facility] (procedure) 12:00:00 AM EST [facility]) Documentation of current 01/22/2019 MED [facility] ([facility] (procedure) 12:00:00 AM EST [facility]) Documentation of current 01/22/2019 MED [facility] ([facility] (procedure) 12:00:00 AM EST [facility]) Documentation of current 01/22/2019 MED [...] AM [facility]) OFFICE OUTPATIENT VISIT 12/25/2018 MED[facility] EN ([facility] 15 MINUTES 12:00:00 AM [facility]) Documentation of current 12/25/2018 MED [facility] ([facility] medications (procedure) 12:00:00 AM [facility]) Documentation of current 12/25/2018 MED [facility] ([facility] medications (procedure) 12:00:00 AM [facility], ) OFFICE OUTPATIENT VISIT 12/25/2018 MED[facility] EN ([facility] 15 MINUTES 12:00:00 AM [facility], ) Documentation of current 12/11/2018 MED [facility] ([facility] medications (procedure) 12:00:00 AM [facility]) Documentation of current 12/11/2018 MED [facility] ([facility] medications (procedure) 12:00:00 AM [facility], ) Documentation of current 12/11/2018 MED [facility] ([facility] medications (procedure) 12:00:00 AM [facility]) Documentation of current 12/11/2018 MED [facility] ([facility] medications (procedure) 12:00:00 AM [facility]) Documentation of current 12/11/2018 MED [facility] ([facility] medications (procedure) 12:00:00 AM [facility]) Documentation of current 12/11/2018 MED [facility] ([facility] medications (procedure) 12:00:00 AM [facility]andez ) Documentation of current 12/11/2018 MED [facility] ([facility] medications (procedure) 12:00:00 AM [facility]ernandez ) Documentation of current 12/11/2018 MED [facility] ([facility] medications (procedure) 12:00:00 AM [facility] fernandez ) OFFICE OUTPATIENT VISIT 12/11/2018 [facility] EN ([facility] 15 MINUTES 12:00:00 AM [facility], ) INFLUENZA VACCINE 12/11/2018 [facility] ([facility] 12:00:00 AM [facility], ) IMADM PRQ ID SUBQ/IM [id number] 12/11/2018 ME DGEN ([facility] 1 VACCINE 12:00:00 AM [facility], [facility]) Documentation of current 12/11/2018 MED [facility] ([facility] medications (procedure) 12:00:00 AM [facility] ) Documentation of current 12/11/2018 MED [facility] ([facility] medications (procedure) 12:00:00 AM [facility]andez ) Documentation of current 12/11/2018 MED [facility] ([facility] medications (procedure) 12:00:00 AM EST M edical, PC) Documentation of current 12/11/2018 MED [facility] ([facility] medications (procedure) 12:00:00 AM EST [facility]) Documentation of current 12/11/2018 MED [facility] ([facility] medications (procedure) 12:00:00 AM EST [facility]) Documentation of current 12/11/2018 MED [facility] ([facility] medications (procedure) 12:00:00 AM EST [facility]) Documentation of current 12/11/2018 MED [facility] ([facility] medications (procedure) 12:00:00 AM EST [facility]) Documentation of current 12/11/2018 MED [facility] ([facility] medications (procedure) 12:00:00 AM EST [facility]) OFFICE OUTPATIENT VISIT 12/11/2018 MED[facility] EN ([facility] 15 MINUTES 12:00:00 AM [facility], PC) INFLUENZA VACCINE 12/11/2018 [facility] ([facility] 12:00:00 AM [facility], PC) IMADM PRQ ID SUBQ/IM NJXS 12/11/2018 ME DGEN ([facility] 1 VACCINE 12:00:00 AM [facility], [facility]) Results ID Date Data Source [id number] 12/07/2019 12:35:00 PM EDT [facility] Name Value Range Interpretation Description Data Sup porting Code Source(s) Document(s ) SARS [facility] coronavirus 2 RNA This lab was ordered by [facility] and reported by [facility]. ID Date Data Source [id number] 04/10/2019 12:00:00 AM EST [facility] Name Value Range Interpretation Code Description Data Bonny rce(s) Supporting Document(s ) ID Date Data Source [id number] 04/10/2019 12:00:00 AM EST [facility] Name Value Range Interpretation Code Description Data Bonny rce(s) Supporting Document(s ) PDF Image . Normal (applies to [facility] (St non-numeric results) [facility]) ID Date Data Source [id number] 04/10/2019 12:00:00 AM EST [facility] Name Value Range Interpretation Description Data Sup porting Code Source(s) Document(s ) Hemoglobin 6.5 % Above high normal [facility] (St A1c/Hemoglobin. [facility] total in Blood [facility], ) ID Date Data Source [id number] 04/10/2019 12:00:00 AM EST [facility] ([facility]) Name Value Range Interpretation Description Data Sup porting Code Source(s) Document(s ) Bilirubin.c 0.10 mg/dL Normal (applies to MED[facility] ( St onjugated non-numeric [facility] [Mass/volum results) [facility], ) e] in Serum or Plasma ID Date Data Source [id number] 04/10/2019 12:00:00 AM EST [facility] ([facility]) Name Value Range Interpretation Description Data Sup porting Code Source(s) Document(s ) Cholesterol 171 Normal (applies MED[facility] (St [Mass/volume] in mg/dL to non-numeric [facility] Serum or Plasma results) [facility], ) Triglyceride 213 Above high normal MEDGEN (S t [Mass/volume] in mg/dL [facility] Serum or Plasma [facility], ) HDL Cholesterol 39 mg/dL Below low normal [facility] ([facility], ) VLDL Cholesterol 43 mg/dL Above high normal MEDGE N ( [facility]) LDL Cholesterol 89 mg/dL Normal (applies MED[facility] ( St Calc to non-numeric [facility] results) [facility], ) ID Date Data Source [id number] 04/10/2019 12:00:00 AM EST [facility] ([facility]) Name Value Range Interpretation Description Data Sup porting Code Source(s) Document(s ) Glucose 121 Above high MED[facility] (St [Mass/volume] in mg/dL normal [facility] Urine collected for Medical, unspecified PC) duration Urea nitrogen 20 mg/dL Normal (applies [facility] (St [Mass/volume] in to non-numeric [facility] Serum or Plasma results) [facility], ) Creatinine 1.22 Above high MED[facility] (St [Interpretation] in mg/dL normal [facility] Urine [facility], ) eGFR If NonAfricn 48 Below low normal MEDGE N (St Am mL/min/[address], ) eGFR If Africn Am 55 Below low normal MEDGE N (St mL/min/1 [facility], PC) BUN/Creatinine 16 Normal (applies [facility] (S t Ratio to non-numeric [facility] results) Medical, PC) Sodium 140 Normal (applies MED[facility] (St [Moles/volume] in mmol/L to non-numeric [facility] Serum or Plasma results) Medical, PC) Chloride 103 Normal (applies [facility] (St [Moles/volume] in mmol/L to non-numeric [facility] Serum or Plasma results) Medical, PC) Potassium 4.3 Normal (applies MED[facility] (St [Mass/volume] in mmol/L to non-numeric [facility] Blood results) Medical, PC) Carbon dioxide, 23 Normal (applies MED[facility] ( St total mmol/L to non-numeric [facility] [Moles/volume] in results) Medical, Serum or Plasma PC) Calcium 9.2 Normal (applies MED[facility] (St [Moles/volume] in mg/dL to non-numeric [facility] Urine collected for results) Medical, unspecified PC) duration Protein 6.9 g/dL Normal (applies MED[facility] (St [Mass/volume] in to non-numeric [facility] Serum or Plasma results) Medical, PC) Microalbumin 4.1 g/dL Normal (applies [facility] (St [Mass/time] in to non-numeric [facility] Urine collected for results) Medical, unspecified PC) duration Globulin, Total 2.8 g/dL Normal (applies [facility] ( St to non-numeric [facility] results) Medical, PC) A/G Ratio 1.5 Normal (applies [facility] (St to non-numeric [facility] results) [facility], PC) Bilirubin.total 0.2 Normal (applies MED[facility] ( St [Mass/volume] in mg/dL to non-numeric [facility] Serum or Plasma results) Medical, PC) Alkaline 88 IU/L Normal (applies [facility] (St phosphatase to non-numeric [facility] [Enzymatic results) Medical, activity/volume] in PC) Serum, Plasma or Blood Aspartate 27 IU/L Normal (applies MED[facility] (St aminotransferase to non-numeric [facility] [Enzymatic results) Medical, activity/volume] in PC) Serum or Plasma Alanine 28 IU/L Normal (applies MED[facility] (St aminotransferase to non-numeric [facility] [Enzymatic results) Medical, activity/volume] in PC) Serum or Plasma ID Date Data Source [id number] 04/10/2019 12:00:00 AM EST [facility] Name Value Range Interpretation Code Description Data Bonny rce(s) Supporting Document(s ) ID Date Data Source [id number] 04/10/2019 12:00:00 AM EST [facility], ) Name Value Range Interpretation Code Description Data Bonny rce(s) Supporting Document(s ) PDF Image . Normal (applies to [facility] (St non-numeric results) [facility], ) ID Date Data Source [id number] 04/10/2019 12:00:00 AM EST [facility], ) Name Value Range Interpretation Description Data Sup porting Code Source(s) Document(s ) Hemoglobin 6.5 % Above high normal [facility] (St A1c/Hemoglobin. [facility] total in Blood [facility], ) ID Date Data Source [id number] 04/10/2019 12:00:00 AM EST [facility], ) Name Value Range Interpretation Description Data Sup porting Code Source(s) Document(s ) Bilirubin.c 0.10 mg/dL Normal (applies to MED[facility] ( St onjugated non-numeric [facility] [Mass/volum results) [facility], ) e] in Serum or Plasma ID Date Data Source [id number] 04/10/2019 12:00:00 AM EST [facility], ) Name Value Range Interpretation Description Data Sup porting Code Source(s) Document(s ) Triglyceride 213 Above high normal [facility] (S t [Mass/volume] in mg/dL [facility] Serum or Plasma [facility], ) Cholesterol 171 Normal (applies MED[facility] (St [Mass/volume] in mg/dL to non-numeric [facility] Serum or Plasma results) [facility], ) HDL Cholesterol 39 mg/dL Below low normal [facility] ([facility], ) LDL Cholesterol 89 mg/dL Normal (applies MEDGEN ( St Calc to non-numeric [facility] results) [facility], ) VLDL Cholesterol 43 mg/dL Above high normal [facility] N ([facility], ) ID Date Data Source [id number] 04/10/2019 12:00:00 AM EST [facility], ) Name Value Range Interpretation Description Data Sup porting Code Source(s) Document(s ) Glucose 121 Above high [facility] (St [Mass/volume] in mg/dL normal [facility] Urine collected for Medical, unspecified PC) duration Urea nitrogen 20 mg/dL Normal (applies [facility] (St [Mass/volume] in to non-numeric [facility] Serum or Plasma results) Medical, PC) Creatinine 1.22 Above high [facility] (St [Interpretation] in mg/dL normal [facility] Urine [facility], ) eGFR If Africn Am 55 Below low normal MEDGE N (St mL/min/1 [facility] .73 [facility], PC) eGFR If NonAfricn 48 Below low normal MEDGE N (St Am mL/min/1 [facility], PC) BUN/Creatinine 16 Normal (applies MED[facility] (S t Ratio to non-numeric [facility] results) Medical, PC) Sodium 140 Normal (applies [facility] (St [Moles/volume] in mmol/L to non-numeric [facility] Serum or Plasma results) Medical, ) Potassium 4.3 Normal (applies [facility] (St [Mass/volume] in mmol/L to non-numeric [facility] Blood results) Medical, PC) Chloride 103 Normal (applies [facility] (St [Moles/volume] [...] non-numeric [facility] Serum or Plasma results) Medical, ) Microalbumin 4.1 g/dL Normal (applies MED[facility] (St [...] Serum or Plasma ID Date Data Source [id number] 01/22/2019 12:00:00 AM EST [facility] ([facility] Name Value Range Interpretation Code Description Data Bonny rce(s) Supporting Document(s ) ID Date Data Source [id number] 01/22/2019 12:00:00 AM EST [facility] Name Value Range Interpretation Description Data Sup porting Code Source(s) Document(s ) Hemoglobin 7.8 % Above high normal [facility] (St A1c/Hemoglobin. [facility] total in Blood Medical, ) ID Date Data Source [id number] 01/22/2019 12:00:00 AM EST [facility] ([facility] Name Value Range Interpretation Code Description Data Bonny rce(s) Supporting Document(s ) PDF Image . Normal (applies to [facility] (St non-numeric results) [facility]) ID Date Data Source [id number] 01/22/2019 12:00:00 AM EST [facility] Name Value Range Interpretation Code Description Data Bonny rce(s) Supporting Document(s ) ID Date Data Source [id number] 01/22/2019 12:00:00 AM EST [facility]) Name Value Range Interpretation Description Data Sup porting Code Source(s) Document(s ) Hemoglobin 7.8 % Above high normal [facility] (St A1c/Hemoglobin. [facility] total in Blood Medical, ) ID Date Data Source [id number] 01/22/2019 12:00:00 AM EST [facility] ([facility] Name Value Range Interpretation Code Description Data Bonny rce(s) Supporting Document(s ) PDF Image . Normal (applies to [facility] (St non-numeric results) [facility]) Procedure Social History Code Duration Value Status Description Data Source(s ) Smoking 12/05/2019 No alcohol No completed No alcohol No [facility] ([facility] 12:00:00 AM EDT smoking No use smoking No use of Medical, PC) of illicit illicit drugs. drugs. [place] [facility] Smoking 12/05/2019 Unknown if ever completed Unknown if ever [facility] EN ([facility] 12:00:00 AM EDT smoked smoked Medical, PC) Smoking 09/18/2019 No alcohol No completed No alcohol No [facility] ([facility] 12:00:00 AM EDT smoking No use smoking No use of Medical, PC) of illicit illicit drugs. drugs. Born in Born in [facility], came [place] Smoking 09/18/2019 Unknown if ever completed Unknown if ever MED[facility] EN ([facility] 12:00:00 AM EDT smoked smoked Medical, PC) Vital Signs ID Date Data Source [id number] Name Value Range Interpretation Code Description Data Source(s) Diastolic blood 88 mm[Hg] 88 mm[Hg] [facility] (S t [facility] pressure [facility], [facility]) Systolic blood 144 mm[Hg] 144 mm[Hg] [facility] ([facility] pressure [facility], [facility]) Body weight 182 lb 182 lb [facility] ([facility] Body mass index 38.5 kg/m2 38.5 kg/m2 [facility] (S t [facility] (BMI) [Ratio] Medical, PC ) Diastolic blood 76 mm[Hg] 76 mm[Hg] [facility] (S t [facility] pressure [facility], [facility]) Systolic blood 130 mm[Hg] 130 mm[Hg] [facility] ([facility] pressure [facility], [facility]) Body weight 184 lb 184 lb [facility]) Body height 58 in 58 in [facility]) Body mass index 38.5 kg/m2 38.5 kg/m2 [facility] (S t [facility] (BMI) [Ratio] Medical, PC ) Diastolic blood 76 mm[Hg] 76 mm[Hg] [facility] (S t [facility] pressure [facility], ) Systolic blood 130 mm[Hg] 130 mm[Hg] [facility] ([facility] pressure [facility], ) Body weight 184 lb 184 lb [facility], ) Body height 58 [facility] Body mass index 39.1 kg/m2 39.1 kg/m2 [facility] (S t [facility] (BMI) [Ratio] Medical, ) Diastolic blood 72 mm[Hg] 72 mm[Hg] [facility] (S t [facility] pressure [facility], ) Systolic blood 130 mm[Hg] 130 mm[Hg] [facility] ([facility] pressure [facility], ) Body weight 187 lb 187 lb [facility], ) Body height 58 in 58 in [facility] ([facility], ) Body mass index 39.1 kg/m2 39.1 kg/m2 [facility] (S t [facility] (BMI) [Ratio] [facility], ) Diastolic blood 72 mm[Hg] 72 mm[Hg] [facility] (S t [facility] pressure [facility], ) Systolic blood 130 mm[Hg] 130 mm[Hg] [facility] ([facility] pressure [facility], ) Body weight 187 lb 187 lb [facility], ) Body height 58 in 58 in [facility], ) Body mass index 39.1 kg/m2 39.1 kg/m2 [facility] (S t [facility] (BMI) [Ratio] Medical, ) Diastolic blood 96 mm[Hg] 96 mm[Hg] [facility] (S t [facility] pressure [facility], ) Systolic blood 130 mm[Hg] 130 mm[Hg] [facility] ([facility] pressure [facility], ) Body weight 187 lb 187 lb [facility], ) Body height 58 in 58 in [facility], ) Body mass index 39.1 kg/m2 39.1 kg/m2 [facility] (S t [facility] (BMI) [Ratio] Medical, ) Diastolic blood 96 mm[Hg] 96 mm[Hg] [facility] (S t [facility] pressure [facility], ) Systolic blood 130 mm[Hg] 130 mm[Hg] [facility] ([facility] pressure Medical, ) Body weight 187 lb 187 lb [facility] ([facility], ) Body height 58 in 58 in [facility] ([facility], ) Body mass index 39.3 kg/m2 39.3 kg/m2 [facility] (S t [facility] (BMI) [Ratio] Medical, ) Diastolic blood 74 mm[Hg] 74 mm[Hg] MED[facility] (S t [facility] pressure [facility], ) Systolic blood 130 mm[Hg] 130 mm[Hg] [facility] ([facility] pressure [facility], ) Body weight 188 lb 188 lb [facility] ([facility], ) Body height 58 in 58 in [facility] ([facility], ) Body mass index 39.3 kg/m2 39.3 kg/m2 [facility] (S t [facility] (BMI) [Ratio] Medical, ) Diastolic blood 74 mm[Hg] 74 mm[Hg] [facility] (S t [facility] pressure [facility], ) Systolic blood 130 mm[Hg] 130 mm[Hg] [facility] ([facility] pressure [facility], ) Body weight 188 lb 188 lb [facility] ([facility], ) Body height 58 in 58 in [facility] ([facility], ) Body mass index 39.5 kg/m2 39.5 kg/m2 [facility] (S t [facility] (BMI) [Ratio] Medical, ) Diastolic blood 70 mm[Hg] 70 mm[Hg] [facility] (S t [facility] pressure [facility], ) Systolic blood 130 mm[Hg] 130 mm[Hg] [facility] ([facility] pressure [facility], ) Body weight 189 lb 189 lb [facility] ([facility], ) Body height 58 in 58 in [facility] ([facility], ) Body mass index 39.5 kg/m2 39.5 kg/m2 [facility] (S t [facility] (BMI) [Ratio] Medical, ) Diastolic blood 70 mm[Hg] 70 mm[Hg] MEDGEN (S t [facility] pressure [facility], ) Systolic blood 130 mm[Hg] 130 mm[Hg] [facility] ([facility] pressure Medical, ) Body weight 189 lb 189 lb [facility] ([facility], ) Body height 58 in 58 in [facility] ([facility], ) Body mass index 39.5 kg/m2 39.5 kg/m2 [facility] ([facility] (BMI) [Ratio] [facility], ) Diastolic blood 90 mm[Hg] 90 mm[Hg] [facility] ([facility], ) Systolic blood 150 mm[Hg] 150 mm[Hg] [facility] ([facility], ) Body weight 189 lb 189 lb [facility] ([facility], ) Body height 58 in 58 in [facility] ([facility], ) Body mass index 39.5 kg/m2 39.5 kg/m2 [facility] ([facility] (BMI) [Ratio] [facility] ) Diastolic blood 90 mm[Hg] 90 mm[Hg] [facility] ([facility], ) Systolic blood 150 mm[Hg] 150 mm[Hg] [facility] ([facility], ) Body weight 189 lb 189 lb [facility] ([facility], ) Body height 58 in 58 in [facility] ([facility], )
[2019-12-12] MEDS ORDERED: LIDOCAINE HCL/PF 1% SDV 5ML VIAL ONE (07:16)
[2019-12-12] MEDS ORDERED: POVIDONE-IODINE 5% OPHTHALMIC PREP 30 ML SOLUTION ONE (07:17)
[2019-12-12] MEDS ORDERED: TETRACAINE 0.5% OPHTH SOLN 2 ML BOTTLE ONE (07:17)
[2019-12-12] MEDS ORDERED: ACETAMINOPHEN 325 MG TABLET (FP) PO PRN (08:29)
[2019-12-12] MEDS ORDERED: PHENYLEPHRINE 2.5% OPHTH SOLN 15 ML BOTTLE OP SCH (08:30)
[2019-12-12] MEDS ORDERED: OFLOXACIN 0.3% OPHTHALMIC SOLUTION 5 ML BOTTLE OP SCH (08:30)
[2019-12-12] MEDS ORDERED: OFLOXACIN 0.3% OPHTHALMIC SOLUTION 5 ML BOTTLE ONE (10:48)
[2019-12-12] MEDS ORDERED: PHENYLEPHRINE 2.5% OPHTH SOLN 15 ML BOTTLE OD ONE ×2 (11:00→11:10)
[2019-12-12] MEDS ORDERED: OFLOXACIN 0.3% OPHTHALMIC SOLUTION 5 ML BOTTLE OD ONE ×3 (11:00→11:20)
[2019-12-12] MEDS ORDERED: TRIAMCINOLONE ACET 40MG/1ML VIAL ONE (11:47)
[2019-12-12] MEDS ORDERED: LIDOCAINE 1%/EPI 1:100000 (50 ML MULTI DOSE VIAL) ONE (11:49)
[2019-12-12] MEDS ORDERED: LIDOCAINE HCL 2% JELLY (5 ML/TUBE) ONE (12:39)
[2019-12-12] MEDS ORDERED: MIDAZOLAM HCL 2 MG/2 ML SINGLE DOSE VIAL ONE (12:45)
[2019-12-12] MEDS ORDERED: LIDOCAINE HCL 2% JELLY (5 ML/TUBE) TP ONE (12:53)
[2019-12-12] MEDS ORDERED: TETRACAINE 0.5% OPHTH SOLN 2 ML BOTTLE OD ONE (12:56)
[2019-12-12] MEDS ORDERED: POVIDONE-IODINE 5% OPHTHALMIC PREP 30 ML SOLUTION OD ONE (12:57)
[2019-12-12] MEDS ORDERED: LIDOCAINE 1%/EPI 1:100000 (20 ML MULTI DOSE VIAL) IJ ONE (13:03)
[2019-12-12] MEDS ORDERED: KETOROLAC TROMETHAMINE 30 MG/1 ML VIAL ONE (13:23)
[2019-12-12] MEDS ORDERED: TRIAMCINOLONE ACET 40MG/1ML VIAL IM ONE (13:23)
[2019-12-12 14:37] VITALS: TEMP 97.5
[2019-12-12 14:47] VITALS: BP 110/70; PULSE 70
--- NOTE | 2019-12-13 17:23 | OP ---
DATE OF OPERATION: 12/12/2019 PREOPERATIVE DIAGNOSIS: Pterygium, right eye. POSTOPERATIVE DIAGNOSIS: Pterygium, right eye. PROCEDURE: Excision of pterygium with conjunctival autograft, right eye. ANESTHESIA: Topical MAC. COMPLICATIONS: None. PROCEDURE: The patient was brought in to the operating room and correctly identified along with the operative site. She was then prepped and draped in the usual sterile fashion including 5% Betadine solution in the conjunctival sac and an eyelid drape. An eyelid speculum was then placed into the right eye. The posterior border of the pterygium was marked with a marking pen, and 2 relaxing incisions were made with a sharp Eulalia scissors and Colibri forceps superior and inferior to the pterygium. The pterygium was then bluntly dissected from the cornea using a combination of the Colibri forceps as well as Weck spear sponges. The corneal defect was then polished using a 57 blade as well as enzo bur. The pterygium was then excised at its base, and the conjunctival defect measured 3.5 mm horizontally by 4.5 mm vertically. Attention was then paid to the superotemporal conjunctiva, and a 5.5 mm x 4.5 mm conjunctival autograft was created, first by injecting lidocaine subconjunctivally and then dissecting the conjunctival autograft using sharp Eulalia scissors as well as tissue forceps. The correct orientation was then maintained and the conjunctival autograft brought over to the nasal conjunctival defect. It was secured into place with four 10-0 nylon sutures. At the end of this procedure, the graft was noted to be well secured. Subconjunctival Kenalog given, topical vancomycin given, the eye patched and shielded, and the patient discharged from the operating room in a stable condition. NANCY TARANGO M.D. [id number]
--- NOTE | 2019-12-14 13:33 | PATH ---
Surgical Pathology Report Patient Name: FELIX MCCRACKEN [facility]. Rec. #: [id number] /Age/Gender: 1955 (Age: 64) / F Account: [id number] Location: [facility] Taken: 12/12/2019 Received: 12/13/2019 Reported: 12/14/2019 Physicians: Jayy Elkins M.D. Specimen(s) Received PTERYGIUM RIGHT EYE -NASAL Clinical History Pterygium right eye Final Diagnosis PTERYGIUM, EYE, NASAL, RIGHT, EXCISION: PTERYGIUM. Electronically Signed Mary Rodgers M.D. Gross Description Received in formalin, labeled "pterygium right eye" is a candelario, irregular portion of soft tissue measuring 0.6 cm. in greatest dimension. The specimen is submitted in toto in one cassette. /12/13/2019 saudi12/13/2019
== END 2019-12-12 14:20 | disposition home or self-care (01) ==
LOC: JASU-SURG 04:35
PROVIDERS: ATTEND Ophthalmology
PROC: 08U007Z Supplement of Right Eye with Autologous Tissue Substitute, Open Approach (ICD-10-PCS; principal; 2019-12-12 12:00)
DX: H11.001 Unspecified pterygium of right eye (principal)
CPT/HCPCS: 82962; 88304-TC

== ENCOUNTER 2022-12-28 04:29 | Day surgery (SDC) | payer OTHER ==
[2022-12-24 13:06] VITALS: BMI 37.0
[2022-12-28 13:22] VITALS: TEMP 97.3
[2022-12-28 14:01] VITALS: RESP 15
[2022-12-28 14:03] VITALS: BP 135/70; PULSE 55
== END 2022-12-28 14:10 | disposition home or self-care (01) ==
LOC: JASU-ENDO 04:29
PROVIDERS: ATTEND Internal Medicine Gastroenterology
PROC: 0DB78ZX Excision of Stomach, Pylorus, Via Natural or Artificial Opening Endoscopic, Diagnostic (ICD-10-PCS; 2022-12-28)
PROC: 0DB68ZX Excision of Stomach, Via Natural or Artificial Opening Endoscopic, Diagnostic (ICD-10-PCS; 2022-12-28)
PROC: 0DB98ZX Excision of Duodenum, Via Natural or Artificial Opening Endoscopic, Diagnostic (ICD-10-PCS; principal; 2022-12-28 12:15)
DX: K29.50 Unspecified chronic gastritis without bleeding (principal); K31.89 Other diseases of stomach and duodenum; K44.9 Diaphragmatic hernia without obstruction or gangrene; I10 Essential (primary) hypertension; E11.9 Type 2 diabetes mellitus without complications; Z79.84 Long term (current) use of oral hypoglycemic drugs
CPT/HCPCS: 82962; 88305-TC; 88342-TC